=== PATIENT | female | born 1985 | race Caucasian/White ===

== ENCOUNTER 2022-06-17 20:43 | Emergency (ER) | payer MEDICAID ==
[~2022-06-17] VITALS: Ht 165.1 cm; Wt 118.2 kg
[2022-06-17] MEDS ORDERED: AMLO10TA PO (21:38)
[2022-06-17] MEDS ORDERED: amLODIPine 5mg tablet PO ONE (21:40)
[2022-06-17 21:54] VITALS: BP 194/125
== END 2022-06-17 22:00 | disposition home or self-care (01) ==
LOC: ER 20:45
DX: I10 Essential (primary) hypertension (principal); G89.29 Other chronic pain; M54.9 Dorsalgia, unspecified; F41.9 Anxiety disorder, unspecified; Z88.0 Allergy status to penicillin; Z87.442 Personal history of urinary calculi
CPT/HCPCS: 99283